=== PATIENT | male | born 1980 | race Caucasian/White ===

== ENCOUNTER → 2021-04-24 02:31 | Outpatient (CLI) | payer SELFPAY ==
[2021-04-24 17:30] LABS: SARS-CoV-2 RNA PCR Negative
== END ==
PROVIDERS: PCP Family Medicine; Visit Provider Family Medicine
DX: Z20.822 Contact with and (suspected) exposure to COVID-19 (principal)
CPT/HCPCS: C9803; U0003; U0005

== ENCOUNTER 2025-05-08 10:00 | Day surgery (SDC) | payer OTHER, SELFPAY ==
[2025-04-26 13:47] VITALS: BMI 36.3
--- NOTE | 2025-05-08 10:35 | WPDANESEPPF ---
Anes - Initial Pre Proc Eval Procedure: Operation Date: 05/08/25 11:45 Proposed Procedures p Screening Colonoscopy - Constantin Dias MD Date/Time: 05/08/25 10:35 Surgeon: Constantin Dias MD Pre Op Diagnosis: Screening Patient Data Age: 44 Gender: M Height: 1.65 m Weight: 99 kg Allergies Allergy/AdvReac Type Severity Reaction Status Date / Time No Known Allergies Allergy Verified 05/08/25 10:39 Home Medications ?Medication ?Instructions ?Recorded ?Confirmed ?Type No Home Medications 01/27/25 04/26/25 History Patient hx anesthesia problems: none Family hx anesthesia problems: none Results Review: All pre-operative results and documents have been reviewed as part of the pre-operative evaluation. [facility] Past Medical History Medical History Screening for colon cancer Elevated BP without diagnosis of hypertension Kidney stone on left side BMI 36.0-36.9,adult History of kidney stones Encounter for screening for COVID-19 Exposure to COVID-19 virus Surgical History Surgical History History of removal of cyst 2012 Family History Family History Mother Hypertension Family history of elevated blood lipids Depression Father Family history of heart disease in male family member before age 55 Acute myocardial infarction Grandparent Carcinoma of colon Uterine cancer Grandparent Malignant neoplasm of prostate Grandparent Cardiovascular disease Grandparent Acute myocardial infarction Family history of heart disease in male family member before age 55 Social History Social History Smoking packs per day: 0.5 Smoking cigarettes per day: 10.0 Smoking status: Current every day smoker Tobacco type: cigarettes Alcohol intake: current Alcohol use details: 1-4 drinks a week Substance use: never Substance use type: does not use Living arrangements: with family Spiritual care concerns: No Anes - Eval Final PreProcedure Day of Procedure 05/08/25 10:35 Heart: regular rate and rhythm Lungs: clear to auscultation Airway: Mallampati scale class II Last oral intake: >/= 8 hours ASA classification: II Emergent: no Anesthetic plan: proceed Anesthesia type and monitoring: monitored anesthesia care Results Review: All pre-operative results and documents have been reviewed as part of the pre-operative evaluation. Informed Consent: The patient's anesthetic plan and its attendant risks and benefits were discussed with the patient/family/POA. Questions were solicited and answers provided to the satisfaction of the patient/family/POA.
[2025-05-08 10:40] VITALS: BP 140/90; PULSE 61; RESP 18; TEMP 36.4; O2SAT 96; BMI 35.6
[2025-05-08] MEDS: LACTATED RINGERS 1,000 ML 150 ML IV CONT (10:55)
--- NOTE | 2025-05-08 11:34 | P.HP_ITS ---
H&P: HPI History of Present Illness Date/Time: 05/08/25 11:34 Chief Complaint: Screening colonoscopy Narrative: This is the patient's first colonoscopy. There are no GI symptoms and there is no family history of colorectal cancer. Review of Systems Review of Systems: All systems reviewed & are unremarkable except as noted in HPI and below [facility] Past Medical History Medical History Screening for colon cancer Elevated BP without diagnosis of hypertension Kidney stone on left side BMI 36.0-36.9,adult History of kidney stones Encounter for screening for COVID-19 Exposure to COVID-19 virus Surgical History Surgical History History of removal of cyst 2012 Family History Family History Mother Hypertension Family history of elevated blood lipids Depression Father Family history of heart disease in male family member before age 55 Acute myocardial infarction Grandparent Carcinoma of colon Uterine cancer Grandparent Malignant neoplasm of prostate Grandparent Cardiovascular disease Grandparent Acute myocardial infarction Family history of heart disease in male family member before age 55 Social History Social History Smoking packs per day: 0.5 Smoking cigarettes per day: 10.0 Smoking status: Current every day smoker Tobacco type: cigarettes Alcohol intake: current Alcohol use details: 1-4 drinks a week Substance use: never Substance use type: does not use Living arrangements: with family Spiritual care concerns: No Meds Home Medications and Allergies Home Medications ?Medication ?Instructions ?Recorded ?Confirmed ?Type No Home Medications 01/27/25 04/26/25 H istory Allergies Allergy/AdvReac Type Severity Reaction Status Date / Time No Known Allergies Allergy Verified 05/08/25 10:39 Vital Signs Vital Signs - 24 hr 05/08/25 10:40 Temperature 97.5 F L Pulse Rate 61 Respiratory Rate 18 Blood Pressure 140/90 Pulse Oximetry 96 Oxygen Delivery Room Air Exam Const: General: cooperative and healthy appearing Resp: Effort & Inspection: normal respiratory effort and able to speak in complete sentences Auscultation: clear to auscultation bilaterally Cardio: Rate: regular rate Rhythm: regular rhythm GI: Inspection: normal to inspection GI Palp: No No hepatosplenomegaly present Auscultation: normal bowel sounds Rectal Exam: deferred Skin: General skin exam: normal color Psych: Appearance: grossly normal Mental Status: mental status grossly normal Assessment and Plan Assessment and plan (1) Screening for colon cancer: Code(s): Z12.11 - Encounter for screening for malignant neoplasm of colon Status: Acute Assessment and Plan: The patient is deemed a good candidate for the procedure. Consent signed. Will proceed.
[2025-05-08 11:57] VITALS: BP 124/77; PULSE 64; RESP 18; O2SAT 100
[2025-05-08 12:07] VITALS: BP 127/80; PULSE 58; RESP 18; O2SAT 98
[2025-05-08 12:17] VITALS: BP 125/77; PULSE 63; RESP 18; O2SAT 99
--- NOTE | 2025-05-08 12:39 | WPDANESPN ---
Anes - Prog Note Post-Op Date/Time: 05/08/25 12:39 Cardiovascular status: normal Respiratory status: normal Airway patency: baseline Mental status: baseline Post-Op hydration status: normal Vital Signs: Last Vital Signs Temp 36.4 C L 05/08/25 10:40 Pulse 63 05/08/25 12:17 Resp 18 05/08/25 12:17 BP 125/77 05/08/25 12:17 Pulse Ox 99 05/08/25 12:17 O2 Del Method Room Air 05/08/25 12:17 Pain Score (VAS): 0 I/O: Intake & Output 05/07/25 05/08/25 05/08/25 23:59 07:59 15:59 Intake Total 100 Balance 100 Post-procedural complaints: none Patient Feedback: Patient satisfied with anesthetic care.
--- NOTE | 2025-05-08 12:47 | WPDANESPN ---
Anes - Prog Note Post-Op Date/Time: 05/08/25 12:47 Cardiovascular status: normal Respiratory status: normal Airway patency: baseline Mental status: baseline Post-Op hydration status: normal Vital Signs: Last Vital Signs Temp 36.4 C L 05/08/25 10:40 Pulse 63 05/08/25 12:17 Resp 18 05/08/25 12:17 BP 125/77 05/08/25 12:17 Pulse Ox 99 05/08/25 12:17 O2 Del Method Room Air 05/08/25 12:17 Pain Score (VAS): 0 I/O: Intake & Output 05/07/25 05/08/25 05/08/25 23:59 07:59 15:59 Intake Total 100 Balance 100 Post-procedural complaints: none Patient Feedback: Patient satisfied with anesthetic care.
== END 2025-05-08 12:33 | disposition home or self-care (01) ==
PROVIDERS: PCP Nurse Practitioner Family; Referring Provider Nurse Practitioner Family; Visit Provider Internal Medicine Gastroenterology
PROC: 0DJD8ZZ Inspection of Lower Intestinal Tract, Via Natural or Artificial Opening Endoscopic (ICD-10-PCS; CPT 45378; principal; 2025-05-08 11:45)
DX: Z12.11 Encounter for screening for malignant neoplasm of colon (principal); D12.3 Benign neoplasm of transverse colon
CPT/HCPCS: 45385

== ENCOUNTER 2025-05-08 14:19 | Outpatient (NON) | payer OTHER, SELFPAY ==
--- NOTE | 2025-05-08 | S_PTH ---
PATIENT: Tashi Grossman LOC: [facility] U#:[id number] AGE/SX: 44/M ROOM: RE05/08/[address]: Constantin Dias MD : 1980 BED: DIS: 05/08/2025 SPEC #: [id number] RECD: 05/10/25 07:21 STATUS: GARRICK REQ #: [id number] PARISH: 05/08/25 00:[address]: Constantin Dias DEPT: [facility] Surgical RECD BY: Tramaine Umanzor ENTERED: 05/10/25 07:22 SP TYPE: Surgical OTHR DR: Shirin Mora APRN Tissues: A - Colon Polypectomy Procedures: Hematoxylin and Eosin Stain Gross and Microscopic Level 4
== END 2025-05-08 14:20 | disposition home or self-care (01) ==
LOC: ANHLAB 05-09 14:20
PROVIDERS: PCP Nurse Practitioner Family; Visit Provider Internal Medicine Gastroenterology
DX: Z12.11 Encounter for screening for malignant neoplasm of colon (principal); D12.3 Benign neoplasm of transverse colon
CPT/HCPCS: 88305